=== PATIENT | male | born 1975 | race Caucasian/White ===

== ENCOUNTER 2022-03-19 21:43 | Emergency (ER) | payer MEDICARE ==
[~2022-03-19] VITALS: Ht 172.7 cm; Wt 68.0 kg
[2022-03-19] MEDS ORDERED: IV NORMAL SALINE 1000 ML BAG IV ONE (22:30)
[2022-03-19 22:45] LABS: HEMATOCRIT 44.7 % (36.7-47.1); MEAN CORPUSCULAR HEMOGLOBIN 28.1 uug (23.8-33.4); MEAN CORPUSCULAR VOLUME 85.8 fL (73.0-96.2); PLATELET COUNT (AUTO) 312 K/uL (152-348)
[2022-03-19 22:55] LABS: CARBON DIOXIDE 33 mmol/L (21-32); CHLORIDE 101 mmol/L (98-107); CREATININE 0.9 mg/dL (0.6-1.3); GLUCOSE 86 mg/dL (74-106); POTASSIUM 3.3 mmol/L (3.5-5.1); UREA NITROGEN, BLOOD 11 mg/dL (7-18)
[2022-03-19 23:03] LABS: ALANINE AMINOTRANSFERASE 24 U/L (16-63); ALKALINE PHOSPHATASE 70 U/L (50-136); ASPARTATE AMINOTRANSFERASE 17 U/L (15-37); BILIRUBIN,DIRECT 0.1 mg/dL (0.0-0.2); BILIRUBIN,TOTAL 0.4 mg/dL (0.2-1.0); TOTAL PROTEIN, SERUM 7.1 g/dL (6.4-8.2)
[2022-03-19 23:51] LABS: *BILIRUBIN,URIN NEGATIVE (NEGATIVE); *BLOOD, URINE 2+ (NEGATIVE); *CLARITY,URINE CLEAR (CLEAR); *COLOR,URINE YELLOW (YELLOW); *KETONES,URINE NEGATIVE (NEGATIVE); *UROBILINOGEN,URINE 0.2 E.U./dl (NORMAL); LEUKOCYTE ESTERASE ,URINE NEGATIVE (NEGATIVE); NITRITE, URINE NEGATIVE (NEGATIVE); UGLUCOSE NEGATIVE (NEGATIVE)
[2022-03-19] MEDS ORDERED: ALBUTEROL SULFATE 2.5 MG/3 ML NEBU ONE (23:55)
[2022-03-19] MEDS ORDERED: predniSONE 20 MG TABLET ONE (23:56)
[2022-03-19] MEDS ORDERED: IPRATROPIUM BROMIDE 0.5 MG/2.5 ML NEBU ONE (23:56)
[2022-03-19 23:59] LABS: BACTERIA,URINE RARE /HPF (NONE SEEN); SQUAMOUS EPITHELIAL CELL,UR NONE SEEN /HPF (NONE SEEN); WBC,URINE 0-3 /HPF (0-3)
[2022-03-20] MEDS ORDERED: predniSONE 20 MG TABLET PO ONE
[2022-03-20] MEDS ORDERED: ALBUTEROL SULFATE 2.5 MG/3 ML NEBU NEB ONE
[2022-03-20] MEDS ORDERED: IPRATROPIUM BROMIDE 0.5 MG/2.5 ML NEBU NEB ONE
[2022-03-20] MEDS ORDERED: ALBU8HFA4 PO (01:57)
[2022-03-20] MEDS ORDERED: PRED20TA PO (01:57)
[2022-03-20 02:04] VITALS: BP 110/68
--- NOTE | 2022-03-20 05:22 | NUR ---
Patient presented to the ER with complaints of headache and syncope. Physician met with patient, labs and imaging completed, and medications administered per order. Discharge packet given and explained. Patient departed ambulatory.
== END 2022-03-20 04:55 | disposition home or self-care (01) ==
LOC: ER 21:47
DX: R55 Syncope and collapse (principal); J45.901 Unspecified asthma with (acute) exacerbation; Z59.00 Homelessness unspecified; Z20.822 Contact with and (suspected) exposure to COVID-19
CPT/HCPCS: 99285; 70450; 71045; 87426; 80076; 80048; 81001; 83880; 85025; 85379; 87040 ×2; 84484; 36415; 93005; 94640; 83605; J7512; J7040; A4663; J3590